=== PATIENT | female | born 1945 | race Caucasian/White ===

== ENCOUNTER 2022-03-19 14:40 | Outpatient (CLI) | payer MEDICARE, OTHER | END 2022-03-19 14:41 | disposition home or self-care (01) | LOC: CSHRAD 14:40 | PROVIDERS: ATTEND Internal Medicine Rheumatology | DX: M25.561 Pain in right knee (principal); M17.0 Bilateral primary osteoarthritis of knee | CPT/HCPCS: 73565 ==

== ENCOUNTER 2022-05-07 12:37 | Outpatient (CLI) | payer MEDICARE, OTHER | END 2022-05-07 12:38 | disposition home or self-care (01) | LOC: CSHMRI 12:37 | PROVIDERS: ATTEND Orthopaedic Surgery | DX: M48.061 Spinal stenosis, lumbar region without neurogenic claudication (principal); M51.36 Other intervertebral disc degeneration, lumbar region | CPT/HCPCS: 72148 ==